=== PATIENT | male | born 1980 | race Caucasian/White ===

== ENCOUNTER 2019-06-10 16:25 | Emergency (ER) | payer OTHER ==
[~2019-06-10] VITALS: Ht 167.6 cm; Wt 74.8 kg
[2019-06-10 16:31] VITALS: BP 161/127
--- NOTE | 2019-06-10 16:41 | NUR ---
PT TAKEN TO XRAY VIA WHEELCHAIR
--- NOTE | 2019-06-10 16:56 | NUR ---
38 Y/M PRESENTS TO ED FOR LACERATION TO L 2ND DIGIT X 30 MINS AGO WHILE "BREAKING UP JOLLY RANCHERS" THAT WERE STUCK TOGETHER FOR THE KIDS. PT REPORTS 5/10 THROBBING PAIN. CAP REFILL <3 SECONDS, CMS IN TACT. ALLERGIES- PENICILLIN HX- HEP C
--- NOTE | 2019-06-10 16:58 | NUR ---
EMT AT BEDSIDE IRRIGATING WOUND.
--- NOTE | 2019-06-10 17:16 | NUR ---
ELIECER CHANEL AT BEDSIDE.
--- NOTE | 2019-06-10 18:04 | NUR ---
Patient discharged with v/s stable. Written and verbal after care instructions given and explained. Patient alert, oriented and verbalized understanding of instructions. Ambulatory with steady gait. All questions addressed prior to discharge. ID band removed. Patient advised to follow up with PMD. Rx of IBUPROFEN AND BACITRACIN given. Patient educated on indication of medication including possible reaction and side effects. Opportunity to ask questions provided and answered.
== END 2019-06-10 18:04 | disposition home or self-care (01) ==
LOC: MED 16:25
DX: S61.211A Laceration without foreign body of left index finger without damage to nail, initial encounter (principal); Z88.0 Allergy status to penicillin; W26.9XXA Contact with unspecified sharp object(s), initial encounter; Y93.89 Activity, other specified; Y92.89 Other specified places as the place of occurrence of the external cause; Y99.8 Other external cause status
CPT/HCPCS: 12001; 73130; 99283

== ENCOUNTER 2019-08-13 06:50 | Emergency (ER) | payer SELFPAY ==
[~2019-08-13] VITALS: Ht 167.6 cm; Wt 81.6 kg
[2019-08-13 06:56] VITALS: BP 130/86
[2019-08-13 07:26] VITALS: BP 130/86
== END 2019-08-13 08:02 | disposition home or self-care (01) ==
LOC: MED 06:50
DX: F41.9 Anxiety disorder, unspecified (principal); F12.10 Cannabis abuse, uncomplicated; R03.0 Elevated blood-pressure reading, without diagnosis of hypertension; Z88.0 Allergy status to penicillin; F10.120 Alcohol abuse with intoxication, uncomplicated; Y90.9 Presence of alcohol in blood, level not specified
CPT/HCPCS: 93005; 99283

== ENCOUNTER 2019-10-01 21:49 | Emergency (ER) | payer OTHER ==
[~2019-10-01] VITALS: Ht 167.6 cm; Wt 71.2 kg
[2019-10-01 22:11] VITALS: BP 139/103
--- NOTE | 2019-10-01 22:38 | NUR ---
xray at bedside
--- NOTE | 2019-10-01 22:50 | NUR ---
38 YEAR OLD MALE COMPLAINS OF ABDOMINAL PAIN IN CENTRAL ABDOMEN SINCE MORNING. PT STATES THAT HE HAS HAD LITTLE HARD DINORA FOR POOP. PT DENIES N/V/D. PT AOX4, BREATHING EVEN AND UNLABORED, SKIN WARM AND DRY. BED IN LOWEST POSITION, LOCKED, BED RAIL UP1. PMH - HEP C, FATTY LIVER ALLERGIES - PCN
[2019-10-01 23:10] VITALS: BP 144/97
--- NOTE | 2019-10-01 23:10 | NUR ---
Patient discharged with v/s stable. Written and verbal after care instructions about ileus given and explained. Patient alert, oriented and verbalized understanding of instructions. Ambulatory with steady gait. All questions addressed prior to discharge. ID band removed. Patient advised to follow up with PMD. Rx of tablet given. Patient educated on indication of medication including possible reaction and side effects. Opportunity to ask questions provided and answered.
== END 2019-10-01 23:10 | disposition home or self-care (01) ==
LOC: MED 21:49
DX: K56.7 Ileus, unspecified (principal); K76.0 Fatty (change of) liver, not elsewhere classified; Z88.0 Allergy status to penicillin
CPT/HCPCS: 74018; 99283; Q0092

== ENCOUNTER 2023-01-27 15:24 | Emergency (ER) | payer OTHER ==
[~2023-01-27] VITALS: Ht 167.6 cm; Wt 72.6 kg
[2023-01-27 15:44] VITALS: BP 132/76; PULSE 103; RESP 18; TEMP 98; O2SAT 98
[2023-01-27 16:59] VITALS: O2SAT 98
[2023-01-27] MEDS ORDERED: SULF-59 PO (17:17)
[2023-01-27] MEDS ORDERED: HYDR-5191 PO (17:17)
== END 2023-01-27 17:22 | disposition home or self-care (01) ==
LOC: MED 15:24
DX: L02.31 Cutaneous abscess of buttock (principal); L03.317 Cellulitis of buttock; Z79.899 Other long term (current) drug therapy; Z79.2 Long term (current) use of antibiotics; Z88.0 Allergy status to penicillin
CPT/HCPCS: 99284

== ENCOUNTER 2023-01-30 11:06 | Emergency (ER) | payer OTHER ==
[~2023-01-30] VITALS: Ht 167.6 cm; Wt 66.2 kg
[~2023-01-30 11:06] MED LIST: HYDR-5191 PO; SULF-59 PO
[2023-01-30 11:23] VITALS: BP 121/65; PULSE 81; RESP 16; TEMP 97; O2SAT 99
== END 2023-01-30 12:31 | disposition home or self-care (01) ==
LOC: MED 11:06
DX: L02.31 Cutaneous abscess of buttock (principal); Z48.00 Encounter for change or removal of nonsurgical wound dressing; Z79.899 Other long term (current) drug therapy
CPT/HCPCS: 99284